=== PATIENT | female | born 1980 | race Caucasian/White ===

== ENCOUNTER 2018-01-25 22:47 | Emergency (ER) | payer MEDICAID ==
[2018-01-25 23:03] VITALS: BP 144/79
[2018-01-25] MEDS ORDERED: Ketorolac 60 MG/2 ML SDV IM ONE (23:54)
[2018-01-25] MEDS ORDERED: Acetaminophen/oxyCODONE 325-5 MG Tab PO ONE (23:55)
--- NOTE | 2018-01-26 00:02 | EDM.PDOC ---
ED HPI GENERAL MEDICAL PROBLEM - General Chief Complaint: ENT Problem Stated Complaint: BROKE FRONT TOOTH Time Seen by Provider: 01/25/18 23:56 Source of Information: Reports: Patient History Limitations: Reports: No Limitations - History of Present Illness INITIAL COMMENTS - FREE TEXT/NARRATIVE: pt was eating a hard candy and her upper left molar cracked. She is now having severe pain. She has not had trouble with the tooth ahead of this. Onset: Today Duration: Hour(s): Location: Reports: Face Associated Symptoms: Reports: No Other Symptoms - Related Data Allergies Allergy/AdvReac Type Severity Reaction Status Date / Time shellfish derived Allergy Severe Difficulty Verified 01/25/18 23:17 Breathing estradiol Allergy Unknown Itching Verified 01/25/18 23:17 aripiprazole [From Abilify] Allergy Dizziness Verified 01/25/18 23:17 venom-honey bee Allergy Cannot Verified 01/25/18 23:17 [bee venom (honey bee)] Remember Home Meds: Home Meds EPINEPHrine [Epipen] 0.3 mg IM ASDIRECTED PRN 08/15/13 [History] LORazepam [Ativan] 1 mg PO TID 08/15/13 [History] Prochlorperazine [Compazine] 10 mg PO Q6HR PRN 08/15/13 [History] Cyanocobalamin (Vitamin B12) [Vitamin B12] 1 injection INJECT ASDIRECTED [History] Past Medical History HEENT History: Reports: Hard of Hearing Gastrointestinal History: Reports: None COUTURIERE History: Reports: Other (See Below) Other COUTURIERE History: hysterectomy Neurological History: Reports: Other (See Below) Other Neuro History: silent seizures Psychiatric History: Reports: Anxiety Endocrine/Metabolic History: Reports: Diabetes, Type II - Past Surgical History GI Surgical History: Reports: Appendectomy, Bariatric Procedure, Cholecystectomy , EGD Social & Family History - Family History Cardiac: Reports: Angina, Bypass Respiratory: Reports: Asthma OBGYN: Reports: Endometriosis Neurological: Reports: Alzheimers Disease Psychiatric: Reports: Anxiety, Schizophrenia Endocrine/Metabolic: Reports: Diabetes, type II Oncologic: Reports: Bone, Breast, Ovarian, Uterine - Tobacco Use Smoking Status *Q: Never Smoker - Caffeine Use Caffeine Use: Reports: None - Recreational Drug Use Recreational Drug Use: No ED ROS ENT - Review of Systems Review Of Systems: See Below Constitutional: Reports: No Symptoms HEENT: Reports: Dental Pain Respiratory: Reports: No Symptoms Cardiovascular: Reports: No Symptoms Endocrine: Reports: No Symptoms GI/Abdominal: Reports: No Symptoms : Reports: No Symptoms ED EXAM, ENT - Physical Exam Exam: See Below Text/Narrative:: pt has a cracked left upper molar that is very painful. She was eating hard candy tonight and the tooth cracked. Exam Limited By: No Limitations General Appearance: Alert Ears: Normal TMs Nose: Normal Inspection Mouth/Throat: Dental Pain, Dental Tenderness, Other (pt has a cracked left upper molar. ) Head: Atraumatic Neck: Normal Inspection Respiratory/Chest: No Respiratory Distress Course - Vital Signs Last Recorded V/S: Last Vital Signs Temp 36.2 C 01/25/18 23:20 Pulse 101 H 01/25/18 23:20 Resp 16 01/25/18 23:20 BP 144/79 H 01/25/18 23:20 Pulse Ox 100 01/25/18 23:20 - Orders/Labs/Meds Meds: Medications Discontinued Medications Generic Name Dose Route Start Last Admin Trade Name Stanley PRN Reason Stop Dose Admin Ketorolac Tromethamine 60 mg 01/25/18 23:54 01/26/18 00:06 Toradol IM 01/25/18 23:55 60 mg ONETIME ONE Administration Oxycodone/Acetaminophen 1 tab 01/25/18 23:55 01/26/18 00:06 Percocet 325-5 Mg PO 01/25/18 23:56 1 tab ONETIME ONE Administration - Re-Assessments/Exams Free Text/Narrative Re-Assessment/Exam: 01/25/18 23:59 pt was given torodol 60mg im and percocet5/325. Departure - Departure Time of Disposition: 00:00 Disposition: Home, Self-Care 01 Condition: Fair Clinical Impression: Dental abrasion extending into pulp - Discharge Information Instructions: Tooth Injuries Referrals: PCP,None [Primary Care Provider] - Forms: ED Department Discharge Care Plan Goals: dental referal tomorrow, amoxicillin 500mg tid, motrin 600mg qid, norco 5/325 q6h #4 Use filling temporay material to cover the area.
== END 2018-01-26 00:32 | disposition home or self-care (01) ==
LOC: JP.ED 22:47
DX: K03.1 Abrasion of teeth (principal); E11.9 Type 2 diabetes mellitus without complications; Z79.899 Other long term (current) drug therapy; F41.9 Anxiety disorder, unspecified; Z88.8 Allergy status to other drugs, medicaments and biological substances; Z91.040 Latex allergy status
CPT/HCPCS: 96372; 99283; A9270; J1885

== ENCOUNTER 2018-03-02 18:31 | Emergency (ER) | payer MEDICAID ==
[2018-03-02 18:54] VITALS: BP 159/90
--- NOTE | 2018-03-02 19:31 | EDM.PDOC ---
ED HPI GENERAL MEDICAL PROBLEM - General Chief Complaint: Skin Complaint Stated Complaint: POSSIBLE INFECTION UNDER LEFT THUMB Time Seen by Provider: 03/02/18 19:15 Source of Information: Reports: Patient History Limitations: Reports: No Limitations - History of Present Illness INITIAL COMMENTS - FREE TEXT/NARRATIVE: Recently she jammed a wood splinter under the lateral edge of her left thumbnail. She pulled it out immediately but today the thumb is swollen red and painful. - Related Data Allergies Allergy/AdvReac Type Severity Reaction Status Date / Time shellfish derived Allergy Severe Difficulty Verified 02/10/18 19:05 Breathing estradiol Allergy Unknown Itching Verified 02/10/18 19:05 aripiprazole [From Abilify] Allergy Dizziness Verified 02/10/18 19:05 venom-honey bee Allergy Cannot Verified 02/10/18 19:05 [bee venom (honey bee)] Remember Home Meds: Home Meds EPINEPHrine [Epipen] 0.3 mg IM ASDIRECTED PRN 08/15/13 [History] LORazepam [Ativan] 1 mg PO TID 08/15/13 [History] Prochlorperazine [Compazine] 10 mg PO Q6HR PRN 08/15/13 [History] Cyanocobalamin (Vitamin B12) [Vitamin B12] 1 injection INJECT ASDIRECTED [History] Past Medical History HEENT History: Reports: Hard of Hearing Gastrointestinal History: Reports: None, PUD Genitourinary History: Reports: Renal Calculus 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 CHIEF History: hysterectomy Musculoskeletal History: Reports: Arthritis, Back Pain, Chronic, Fracture Neurological History: Reports: Brain Injury, Migraines, Other (See Below) Other Neuro History: silent seizures Psychiatric History: Reports: Anxiety, Depression Endocrine/Metabolic History: Reports: Diabetes, Type II Hematologic History: Reports: B12 Deficiency - Past Surgical History GI Surgical History: Reports: Appendectomy, Bariatric Procedure, Cholecystectomy , Colonoscopy, EGD Female Surgical History: Reports: Breast Reconstruction, Hysterectomy, Lithotripsy/ESWL, Oophorectomy, Salpingo-Oophorectomy Neurological Surgical History: Reports: Other (See Below) Other Neurological Surgeries/Procedures: tailbone removed Social & Family History - Family History Cardiac: Reports: Angina, Bypass Respiratory: Reports: Asthma OBGYN: Reports: Endometriosis Neurological: Reports: Alzheimers Disease Psychiatric: Reports: Anxiety, Schizophrenia Endocrine/Metabolic: Reports: Diabetes, type II Oncologic: Reports: Bone, Breast, Ovarian, Uterine - Tobacco Use Smoking Status *Q: Never Smoker - Caffeine Use Caffeine Use: Reports: None - Recreational Drug Use Recreational Drug Use: No ED ROS GENERAL - Review of Systems Review Of Systems: ROS reveals no pertinent complaints other than HPI. ED EXAM, SKIN/RASH Exam: See Below Exam Limited By: No Limitations General Appearance: Alert, WD/WN Extremities: Other (Left thumb, evidence of recent subungual fb. Possible some early paronychia but nothing that needs to be drained.) Course - Vital Signs Last Recorded V/S: Last Vital Signs Temp 35 C L 03/02/18 18:49 Pulse 80 03/02/18 18:49 Resp 17 03/02/18 18:49 BP 159/90 H 03/02/18 18:49 Pulse Ox 96 03/02/18 18:49 Departure - Departure Time of Disposition: 19:32 Disposition: Home, Self-Care 01 Condition: Fair Clinical Impression: Paronychia - Discharge Information Referrals: PCP,None [Primary Care Provider] - Additional Instructions: You are beginning to get an infection along the nail margin called paronychia. If it balloons up like a blister along the nail margin it will need to be drained. The antibiotics may keep that from happening. Take the Cephalexin 500 mg 4 times daily for 5-7 days. See doctor if no better in 2 days.
== END 2018-03-02 19:45 | disposition home or self-care (01) ==
LOC: JP.ED 18:31
DX: L03.012 Cellulitis of left finger (principal); F41.9 Anxiety disorder, unspecified; F32.9 Major depressive disorder, single episode, unspecified; E11.9 Type 2 diabetes mellitus without complications; Z88.8 Allergy status to other drugs, medicaments and biological substances; Z79.899 Other long term (current) drug therapy
CPT/HCPCS: 99283